=== PATIENT | male | born 1955 | race Caucasian/White ===

== ENCOUNTER 2023-02-17 06:10 | Day surgery (SDC) | payer OTHER, MEDICARE, SELFPAY ==
[2023-02-17] VITALS (13 sets, daily range): BP systolic 104–126; BP diastolic 67–86; PULSE 43–61; RESP 12–16; TEMP 35.8–36.6; O2SAT 95–99; BMI 30.1
[2023-02-17] MEDS: LACTATED RINGERS 1000 ML 1,000 ML 100 ML IV ×2 (06:10→07:43)
[2023-02-17] MEDS: SODIUM CHLORIDE 0.9 % (FLUSH) 10 ML SYRINGE IVF (07:00)
--- NOTE | 2023-02-17 07:40 | W.PM.H&PU ---
History & Physical Update History & Physical Update H&P Reviewed and patient assessed: No changes noted
--- NOTE | 2023-02-17 08:27 | P.ORPRC_ITS ---
Procedure Note Date of procedure: 02/17/23 Procedure: PREOPERATIVE DIAGNOSIS: 1. Left knee medial meniscus tear POSTOPERATIVE DIAGNOSIS: 1. Left knee medial and lateral meniscus tears 2. Left knee chondromalacia PROCEDURE: 1. Left knee arthroscopic partial medial and lateral meniscectomies SURGEON: Mike Lima M.D. [employer]IC: SANTOSH Henry. An drug safety assistant was critical for this case to aid in patient positioning, knee manipulation, instrument exchange, and closure. ANESTHESIA: Spinal EBL: 5 mL TOURNIQUET: 27 minutes at 250 mm Hg COMPLICATIONS: None evident INDICATIONS: 67-year-old male with history of left knee pain following a twisting injury 5 weeks ago. Symptoms pre with conservative management, an MRI demonstrated a tear of the posterior horn of the medial meniscus. Due to failure of non operative management patient was offered surgical intervention consisting of arthroscopic partial meniscectomy. Prior to surgery risks and benefits were discussed with patient, all questions were answered informed consent was obtained. FINDINGS: Examination under anesthesia revealed full knee range of motion. Knee is stable to varus valgus stress. Jessica's posterior drawer tests were negative. Arthroscopic examination demonstrated a parrot-beak tear of the posterior horn of the left medial meniscus with flap flipped into the medial gutter. Mild degenerative tearing of the body of the lateral meniscus. Grade 3 chondromalacia of the tibial plateau. Grade 1 chondromalacia of the medial femoral condyle and medial tibial plateau. ACL, PCL were intact. DESCRIPTION OF PROCEDURE: After a thorough discussion of risks, benefits, and alternatives, the patient was brought to the operating room and placed upon the operating t table. Spinal anesthesia was administered and patient was given 2 g of Ancef preoperatively for prophylaxis. Patient was then placed in supine position or table. All bony prominences were well padded. The left lower extremity was prepped and draped in the appropriate sterile fashion. A surgical time-out was performed confirming patient identity, surgical site, and procedure. Anterolateral and anteromedial portal sites were injected with 0.25% Marcaine with epinephrine. Anterolateral portal was established. Anterior medial portal was established after localization with spinal needle. After making the anterior medial portal some bleeding was obscuring visualization. Therefore decision was made to use a tourniquet. The left lower extremity was exsanguinated and tourniquet inflated to 250 mm Hg. Diagnostic arthroscopy was performed with findings as noted above. Following the diagnostic arthroscopy, attention was directed to the lateral meniscus. There was some degenerative tearing of the body of the lateral meniscus. Partial meniscectomy was performed using motorized shaver. Shaver w as used to create smooth transition from the tear site to normal meniscus. After partial meniscectomy lateral meniscus was probed and confirmed to be stable. Also noticed diffuse grade 3 chondromalacia of the lateral tibial plateau. Attention was then directed to the medial meniscus. There was a parrot-beak tear of the posterior horn of the medial meniscus with displaced flap. Probe was then used to reduce the flipped meniscal tissue. The partial meniscectomy was then performed using various instrument including basket forceps and motorized shaver. Following this, the meniscus was re-probed and found to be stable. Approximately 20% of the overall meniscus was resected, but of the portion that was worked on, approximately 40 % of the depth was resected. At this stage, the shaver was reinserted into the suprapatellar pouch and all remaining meniscal debris was evacuated. Instruments were removed, excess fluid was drained, and closure performed with 4-0 Monocryl with Steri-Strips. Dressings were applied, the tourniquet deflated, and the patient was awoken from anesthesia and transferred to the PACU in stable condition. PLAN: 1. Weightbear as tolerated left lower extremity. Crutch / walker ambulation assistance PRN. 2. Ice, elevation, acetominophen and/or ibuprofen, and [place] for pain as needed. 3. Knee range of motion and quad sets/straight leg raise regularly 4. Follow up in orthopedic clinic in 1-2 weeks for a wound check.
[2023-02-17] MEDS: BUPIVACAINE 0.25 %/EPI 1:200K 30 ml INJECTION (08:31)
--- NOTE | 2023-02-17 08:44 | W.ANESCHARGE ---
Anesthesia Charges Start Date/Time Anesthesia Start Date: 02/17/23 Anesthesia Start Time: 07:25 Stop Date/Time Anesthesia Stop Date: 02/17/23 Anesthesia Stop Time: 08:41
--- NOTE | 2023-02-17 08:57 | W.ANESCHARGE ---
Anesthesia Charges Start Date/Time Anesthesia Start Date: 02/17/23 Anesthesia Start Time: 07:25 Stop Date/Time Anesthesia Stop Date: 02/17/23 Anesthesia Stop Time: 08:41
[2023-02-17] MEDS: OxyCODONE/APAP 5-325 TABLET PO (10:36)
== END 2023-02-17 10:45 | disposition home or self-care (01) ==
PROVIDERS: Visit Provider Orthopaedic Surgery
PROC: (CPT 29870; principal; 2023-02-17 07:30)
DX: M23.262 Derangement of other lateral meniscus due to old tear or injury, left knee (principal); M23.222 Derangement of posterior horn of medial meniscus due to old tear or injury, left knee; M94.262 Chondromalacia, left knee
CPT/HCPCS: 29880; 01400; A9270; J1100; J1200; J1885; J2250; J2405; J2704; J7120

== ENCOUNTER 2023-03-22 09:15 | Outpatient (RCR) | payer OTHER, SELFPAY | END 2023-03-22 10:07 | disposition home or self-care (01) | PROVIDERS: Visit Provider Orthopaedic Surgery | DX: S83.232A Complex tear of medial meniscus, current injury, left knee, initial encounter (principal); M25.562 Pain in left knee; M25.662 Stiffness of left knee, not elsewhere classified; R26.9 Unspecified abnormalities of gait and mobility; Z51.89 Encounter for other specified aftercare | CPT/HCPCS: 97110; 97140; 97161 ==